=== PATIENT | female | born 1985 | race African-American/Black ===

== ENCOUNTER 2016-08-27 10:10 | Emergency (ER) | payer OTHER ==
[~2016-08-27] VITALS: Ht 167.6 cm; Wt 59.0 kg
[2016-08-27] MEDS ORDERED: NKM (10:29)
[2016-08-27] MEDS ORDERED: Dicyclomine HCl 10mg/5ml oral soln ORAL ONE (11:00)
[2016-08-27] MEDS ORDERED: Mylanta II UD 30ml ORAL ONE (11:00)
[2016-08-27] MEDS ORDERED: Lidocaine 2% Visc 15ml soln ORAL ONE (11:00)
[2016-08-27] MEDS ORDERED: RANITIDINE HCL150 MG ORAL (11:50)
[2016-08-27] MEDS ORDERED: ZOFRAN ODT4 MG ORAL (11:50)
[2016-08-27 12:05] VITALS: BP 128/77
--- NOTE | 2016-08-28 07:04 | Emergency Room Report ---
History of Present Illness General Chief Complaint: Nausea Source: Patient Present Illness HPI 31-year-old female present to ED complaining of nausea and vomiting x2 days. Patient states symptoms started shortly after eating at a fast food restaurant 2 days ago. Patient notes episodes of vomiting, denies abdominal pain. Denies fevers or chills. Denies dysuria or hematuria. Patient states she is not sexually active and is sure she is not . No other aggravating relieving factors. Denies any other associated symptoms Allergies: Coded Allergies: No Known Allergies (Unverified , 08/27/16) Patient History Past Medical History: none Past Surgical History: none Pertinent Family History: none Social History: Denies: alcohol use, drug use, smoking Last Menstrual Period: 08/26/2016 Now: No Immunizations: UTD Reviewed Nursing Documentation: PMH: Agreed, PSxH: Agreed Nursing Documentation-PMH Past Medical History: No Stated History Review of Systems All Other Systems: negative except mentioned in HPI Physical Exam Vital Signs Date Time Temp Pulse Resp B/P Pulse Ox O2 Delivery O2 Flow Rate FiO2 08/27/16 10:25 98.1 75 14 121/81 99 Room Air Sp02 EP Interpretation: reviewed, normal General Appearance: no apparent distress, alert, GCS 15, non-toxic Head: normocephalic Eyes: bilateral eye PERRL, bilateral eye normal inspection ENT: normal ENT inspection Neck: normal inspection Respiratory: chest non-tender, lungs clear, normal breath sounds, speaking full sentences Cardiovascular #1: regular rate, rhythm, no edema Gastrointestinal: normal bowel sounds, non tender, soft, non-distended, no guarding, no rebound Rectal: deferred Genitourinary: no CVA tenderness Musculoskeletal: normal inspection Neurologic: alert, oriented x3, responsive, motor strength/tone normal, sensory intact, speech normal Psychiatric: normal inspection Skin: normal inspection Lymphatic: normal inspection Medical Decision Making Diagnostic Impression: Primary Impression: Gastritis Qualified Codes: K29.00 - Acute gastritis without bleeding ER Course Hospital Course 31-year-old F presents to ED with with N/V. differential diagnosis: gastritis, SBO, cholecystits Clinical course Patient placed on stretcher. On pvc monitor. After initial history and physical, patient declined IV access and lab draw. States she would prefer to try by mouth meds. Abdomen is soft. Patient was given ODT Zofran, by mouth Zantac, GI cocktail Upon reassessment, patient states pain has improved. findings consistent with gastritis I feel this is a highly complex case requiring extensive working including EKG/ Rhythm strip, Xray/CT/US, Blood/urine lab work, repeat exams while in ED, and administration of strong opiates/narcotics for pain control, admission to hospital or close patient follow up. Diagnosis - gastritis Stable and discharged to home with prescriptions for Zantac, zofran. Followup with PMD. Return to ED if symptoms recur or worsen Last Vital Signs Date Time Temp Pulse Resp B/P Pulse Ox O2 Delivery O2 Flow Rate FiO2 08/27/16 12:05 78 16 128/77 99 Room Air 08/27/16 10:25 98.1 Status: improved Disposition: HOME, SELF-CARE Condition: Stable Scripts Ranitidine Hcl* (ZANTAC*) 150 Mg Tablet 150 MG ORAL TWICE A DAY, #30 TAB Prov: JOSEPHINE FAYE M.D. 08/27/16 Ondansetron Odt* (ZOFRAN ODT*) 4 Mg Tab.rapdis 4 MG ORAL Q6H Y for Nausea & Vomiting, #30 TAB 0 Refills Prov: JOSEPHINE FAYE M.D. 08/27/16 Departure Forms: Return to Work Return to Work Date: Aug 30, 2016 Work Restrictions: None Patient Instructions: Gastritis, Adult, [id number] JOSEPHINE FAYE M.D. Aug 28, 2016 07:04
== END 2016-08-27 12:28 | disposition home or self-care (01) ==
LOC: EMR 11:09 → EEVIPCON 11:09 → EMR 12:28
DX: K29.00 Acute gastritis without bleeding (principal)
CPT/HCPCS: 99284

== ENCOUNTER 2016-09-22 09:23 | Emergency (ER) | payer OTHER ==
[~2016-09-22] VITALS: Ht 167.6 cm; Wt 59.0 kg
[~2016-09-22 09:23] MED LIST: NKM; RANITIDINE HCL150 MG ORAL; ZOFRAN ODT4 MG ORAL
[2016-09-22 09:35] VITALS: BP_SYST 117
[2016-09-22] MEDS ORDERED: AMOXICILLIN500 MG ORAL (10:02)
[2016-09-22] MEDS ORDERED: ACETAMINOPHEN-1 EAC1 ORAL (10:02)
[2016-09-22 10:20] VITALS: BP 119/77
--- NOTE | 2016-09-22 11:03 | Emergency Room Report ---
History of Present Illness General Chief Complaint: Toothache Source: Patient Present Illness HPI 31-year-old female presents to ED complaining of tooth pain times one week. States that one week ago she chewed on some ice and accidentally cracked her left lower molar. There is persistent pain since. Notes some swelling to the left side of face. Pain is throbbing, 8/10, nonradiating. No other aggravating or relieving factors. Denies fevers or chills. Denies any other associated symptoms Allergies: Coded Allergies: No Known Allergies (Unverified , 08/27/16) Patient History Past Medical History: none Past Surgical History: none Pertinent Family History: none Social History: Denies: alcohol use, drug use, smoking Last Menstrual Period: 09/07/16 Now: No Immunizations: UTD Reviewed Nursing Documentation: PMH: Agreed, PSxH: Agreed Nursing Documentation-PMH Past Medical History: No Stated History Review of Systems All Other Systems: negative except mentioned in HPI Physical Exam Vital Signs Date Time Temp Pulse Resp B/P Pulse Ox O2 Delivery O2 Flow Rate FiO2 09/22/16 09:35 98.2 72 16 117/ 99 Room Air Sp02 EP Interpretation: reviewed, normal General Appearance: no apparent distress, alert, GCS 15, non-toxic Head: normocephalic Eyes: bilateral eye PERRL, bilateral eye normal inspection ENT: hearing grossly normal, normal pharynx, no angioedema, normal voice, TMs + canals normal, other - L lower 3rd molar with pulp exposed. Neck: full range of motion, supple/symm/no masses Respiratory: chest non-tender, lungs clear, normal breath sounds, speaking full sentences Cardiovascular #1: normal inspection Gastrointestinal: normal inspection Rectal: deferred Genitourinary: no CVA tenderness Musculoskeletal: normal inspection Neurologic: alert, oriented x3, responsive, motor strength/tone normal, sensory intact, speech normal Psychiatric: normal inspection Skin: normal inspection Lymphatic: normal inspection Medical Decision Making Diagnostic Impression: Primary Impression: Toothache ER Course 31-year-old female presents ED complaining of tooth pain. Cracked tooth, dental abscess, cavity Patient placed on stretcher. After initial history, physical exam reveals a female in mild distress. The tooth in question shows a crack with some pulp exposed. No surrounding abscess. some facial swelling noted Given tylenol in ED with pain improved. Diagnosis- tooth ache Stable and discharged to home prescription for tylenol #3 and amoxicillin. Instructed to see dentist as a walk-in this week. Return to ED if symptoms recur or worse Last Vital Signs Date Time Temp Pulse Resp B/P Pulse Ox O2 Delivery O2 Flow Rate FiO2 09/22/16 10:21 97.7 09/22/16 10:20 73 16 119/77 98 Room Air Status: improved Disposition: HOME, SELF-CARE Condition: Stable Scripts Amoxicillin* (AMOXIL*) 500 Mg Capsule 500 MG ORAL THREE TIMES A DAY, #21 CAP Prov: JOSEPHINE FAYE M.D. 09/22/16 Acetaminophen With Codeine (T#3) (TYLENOL #3 TAB*) Y Tab 1 TAB ORAL Q8H Y for For Pain, #20 TAB Prov: JOSEPHINE FAYE M.D. 09/22/16 Referrals: NON PHYSICIAN (PCP) Patient Instructions: Dental Pain JOSEPHINE FAYE M.D. Sep 22, 2016 11:03
== END 2016-09-22 10:22 | disposition home or self-care (01) ==
LOC: EMR 09:47
DX: K08.89 Other specified disorders of teeth and supporting structures (principal); K03.81 Cracked tooth; K04.7 Periapical abscess without sinus
CPT/HCPCS: 99284